=== PATIENT | male | born 1945 | race Two or more races ===

== ENCOUNTER 2024-08-26 00:01 | Emergency (ER) | payer MEDICARE, SELFPAY ==
[2024-08-26 00:01] VITALS: BMI 24.7
[2024-08-26 00:15] VITALS: BP 120/66; PULSE 91; RESP 19; TEMP 36.4; O2SAT 94
--- NOTE | 2024-08-26 00:33 | EDRME_ITS ---
Rapid Medical Screening Exam PENDING SALE TO [facility] Arrival date/time: 08/26/24 00:01 79M with history of HTN and DM Presents to ED with 1 day of RLQ pain and [id number] constipation. Chief Complaint: Abdominal Pain Vital signs: Vital Signs Temperature 97.6 F 08/26/24 00:15 Pulse Rate 91 08/26/24 00:15 Respiratory Rate 19 08/26/24 00:15 Blood Pressure 120/66 08/26/24 00:15 Pulse Oximetry (%) 94 L 08/26/24 00:15 Oxygen Delivery Method Room Air 08/26/24 00:15
--- NOTE | 2024-08-26 00:33 | XR_ITS ---
Examination: CT abdomen with intravenous contrast CT pelvis with intravenous contrast 2-D coronal reconstructions 2-D sagittal reconstructions Date and time of exam: August 26, 2024 0330 hrs. Comparison April 05, 2023 Indications: Painful right lower abdominal pain beginning 2 days ago, history kidney stones CTDI: vol (mGy) 8.11 DLP: (mGycm) 478 Technique: Multiple axial sections of the abdomen and pelvis have been obtained. 64 slice high-resolution scanner used. 3 mm axial sections have been obtained, post intravenous injection 60 cc Isovue-370 2-D sagittal, coronal reconstructions obtained. Low dose protocols were performed. One or more of the following dose reduction techniques were used; automated exposure control, adjustment of the mA and/or KV according to patient size, use of iterative reconstruction technique. Findings: No focal liver or splenic lesions No gallstones No pancreatic mass Minimal perinephric stranding No renal or ureteral calculi Heavy abdominal aortic and abdominal vascular calcification including renal arteries Air distended right colon Normal appendix No bowel obstruction No diverticulitis Mildly fluid distended small bowel loops in the pelvis No bladder mass Transverse prostate dimension 4.6 cm Impression: No renal or ureteral calculi, no hydronephrosis Heavy vascular calcification Normal appendix No bowel obstruction Mild small bowel ileus pattern Moderate prostatomegaly
[2024-08-26 01:25] LABS: Basophils % (Auto) 1 % (0-2.5); Eosinophils # (Auto) 0.1 Thou/mm3 (0.0-0.5); Eosinophils % (Auto) 2 % (0-10); Hematocrit 31.2 % (41.0-53.0); Hemoglobin 11.5 g/dL (13.5-16.0); Immature Granulocytes % (Auto) 0 % (0-0); Immature Granulocytes Auto 0.01 Thou/mm3 (0.00-0.00); Lymphocytes % (Auto) 26 % (10-50); Mean Corpuscular HGB Conc 36.9 g/dl (31.0-37.0); Mean Corpuscular Hemoglobin 33.9 pg (25.0-35.0); Mean Corpuscular Volume 92 fL (80-100); Monocytes # (Auto) 0.6 Thou/mm3 (0.0-0.8); Monocytes % (Auto) 15 % (0-12); Neutrophils # (Auto) 2.1 Thou/mm3 (1.8-7.7); Neutrophils % (Auto) 56 % (37-80); Nucleated Red Blood Cell % 0 /100 WBC (0); Platelet Count 269 Thou/mm3 (140-440); Red Blood Count 3.39 Miln/mm3 (4.50-5.90); White Blood Count 3.8 Thou/mm3 (3.8-10.6)
[2024-08-26 01:47] LABS: Alanine Aminotransferase 38 U/L (10-49); Albumin, Serum 4.2 gm/dL (3.4-4.8); Albumin/Globulin Ratio 1.9 (1.2-2.2); Alkaline Phosphatase 104 U/L (46-116); Anion Gap 8 (7-16); Aspartate Amino Transferase 32 U/L (0-34); BUN/Creatinine Ratio 7 Ratio (12-20); Bilirubin,Total 0.6 mg/dL (0.3-1.2); Blood Urea Nitrogen 5 mg/dL (9-23); Calcium 9.4 mg/dL (8.3-10.6); Calcium (Corrected) 9.4 mg/dL (8.5-10.1); Carbon Dioxide 27.5 mMol/L (20.0-31.0); Chloride 92 mMol/L (98-107); Creatinine (Component) 0.7 mg/dL (0.6-1.3); Estimated Creatinine Clearance 85.5 mL/min (>60); Globulin 2.2 gm/dL (2.3-3.5); Glucose 137 mg/dL (74-106); Lipase 57 U/L (12-53); Osmolality,Calculated 254 (275-295); Potassium 2.8 mMol/L (3.4-5.1); Sodium 127 mMol/L (136-145); Total Protein 6.4 gm/dL (5.7-8.2); eGFR > 60 See Note
--- NOTE | 2024-08-26 02:04 | EKG_ITS ---
[facility] Test Date: 2024-08-26 Pat Name: GUILLERMO DAVIS Department: Room: - Gender: Male Expander: : 1945 Requested By: Renzo Jacobs Order Number: [id number] Reading MD: Renzo Jacobs Measurements Intervals [place] Rate: 75 P: 4 ME: 170 QRS: -33 QRSD: 127 T: 2 QT: 444 QTc: 497 Interpretive Statements SINUS RHYTHM MARKED LEFT AXIS DEVIATION [QRS AXIS < -30] MODERATE INTRAVENTRICULAR CONDUCTION DELAY [110+ ms QRS DURATION] PROLONGED QT INTERVAL Compared to ECG 10/05/2023 09:14:20 Intraventricular conduction delay now present Prolonged QT interval now present Incomplete right bundle-branch block no longer present /store/S0/[id number]/ecg/[id number].pdf
--- NOTE | 2024-08-26 02:15 | EDNOTE_ITS ---
ED Abdominal Pain RME/HPI General Chief Complaint: Abdominal Pain Stated complaint: lower abd pain Arrival date/time: 08/26/24 00:01 RME / HPI RME / HPI narrative: 08/26/24 00:01 A 79-year-old male patient with past medical history of diverticulosis, hypertension, newly diagnosed diabetes mellitus, presented to the ED due to acute abdominal pain that started today at 8 PM. Patient reported that the pain is generalized was preceded with diarrhea for the last 3 days. Patient reported that he has also been experiencing excessive bloating for the past few months he is following up with Dr. Moreno the artificial candy maker and he did a colonoscopy last year in which he concluded the patient has diverticulosis and hemorrhoids. On further questioning patient reported that he has lower GI bleed also. Last bowel movement was today and followed with fresh blood per rectum, the bleeding was minimal and intermittent.. Patient denied any fever, discharge, chills, cough or shortness of breath. However he reported some shortness of breath when he lay flat and also generalized weakness. His at bedside mentions that he noticed that his feet are swollen. Patient denied any chest pain, palpitation, or syncopal episodes. Related Data Home Medications ?Medication ?Instructions ?Recorded ?Confirmed amlodipine 5 mg tablet (Norvasc) 15 mg PO QDAY #0 tabs 08/04/16 04/08/23 citalopram 10 mg tablet (Celexa) 30 mg PO QDAY #0 tabs 08/04/16 04/08/23 nitroglycerin 0.3 mg sublingual 0.3 mg SL UD #0 tabs 08/04/16 04/08/23 tablet (Nitrostat) simvastatin 40 mg tablet (Zocor) 40 mg PO HS #0 tabs 08/04/16 04/08/23 insulin aspart U-100 100 unit/mL 15 unit subcut TID 03/30/22 04/08/23 subcutaneous solution (Novolog U-100 Insulin aspart) metformin 1,000 mg tablet 1,000 mg PO BID 03/30/22 04/08/23 zaleplon 5 mg capsule 5 mg PO QDAY 03/30/22 04/08/23 docusate sodium 100 mg capsule 100 mg PO BID 04/08/23 04/08/23 (Colace) gabapentin 100 mg capsule 100 mg PO TID 04/08/23 04/08/23 meclizine 50 mg tablet (Antivert) 25 mg PO TID 04/08/23 04/08/23 Allergies Allergy/AdvReac Type Severity Reaction Status Date / Time No Known Allergies Allergy Verified 08/26/24 00:04 ED Exam Narrative Physical exam: GEN: AOx3, able to speak full sentences HEENT: NC/AC, PERRLA, oral mucosa moist, neck supple CVS: RRR, S1-S2 present, no murmurs appreciated RESP: CTAB GI: soft, distended, non tender, NBS MSK: able to move all 4 limbs, +3 lower extremity edema SKIN: warm and dry MACHINE ICER: CN II-XII and Sensation grossly intact. Course Quality Measures none Orders Category Date Time Status CT Screening NOW Care 08/26/24 00:33 Active EKG (ED ONLY) *Do not use* NOW Care 08/26/24 02:04 Completed Insert IV NOW Care 08/26/24 00:[address] abdomen pelvis w con Stat Exams 08/26/24 00:33 Taken EKG (ED Only) Stat Exams 08/26/24 02:04 Draft BNP [B-Type Natriuretic Peptide] Stat Lab 08/26/24 04:29 Ordered CBC Stat Lab 08/26/24 01:13 Completed CMP [Comprehensive Metabolic Panel] Stat Lab 08/26/24 01:13 Completed Lipase Stat Lab 08/26/24 01:13 Completed Troponin I Stat Lab 08/26/24 04:29 Ordered UA [Urinalysis] Stat Lab 08/26/24 01:55 Completed Urine Culture Stat Lab 08/26/24 01:55 Received Morphine Inj Med 08/26/24 02:14 Discontinued 1 mg IVP X1 ONE POTASSIUM CHL 10 mEq IVPB [Kcl Ivpb] Med 08/26/24 02:15 Active 10 meq in 100 ml IV Q1H Potassium Chloride [K-Dur] Med 08/26/24 04:29 Discontinued 40 meq PO X1 ONE Vital Signs Vital signs: Vital Signs Temperature 97.6 F 08/26/24 00:15 Pulse Rate 91 08/26/24 00:15 Respiratory Rate 19 08/26/24 00:15 Blood Pressure 120/66 08/26/24 00:15 Pulse Oximetry (%) 94 L 08/26/24 00:15 Oxygen Delivery Method Room Air 08/26/24 00:15 Abdominal Pain MDM Patient data External records reviewed:: [facility] previous records Clinical information provided by:: patient and spouse Social determinants that could affect healthcare access:: none Patient has the following chronic illnesses:: IBS How is presenting disease/condition affected by chronic disease/condition?: exacerbated by Evaluation data The following diagnostics were reviewed and interpreted by me:: lab results, radiology exam(s) and EKG tracing(s) Lab and/or radiology exams considered but not ordered:: None Interpretation Summary: None Medications / Prescriptions Medications or Prescriptions considered but not ordered:: None Medication administrations:: Medication Administration History Potassium Chloride (Kcl Ivpb) 10 meq in 100 mls @ 100 mls/hr IV Q1H FRANK Stop: 08/26/24 06:14 Last Admin: 08/26/24 04:32 Dose: 100 mls/hr Documented By: Infusion: 08/26/24 04:31 Dose: Infused Documented By: Admin: 08/26/24 03:18 Dose: 100 mls/hr Documented By: SALOMÓN Discontinued Medications Morphine Sulfate (Morphine Sulf Inj 10 Mg/Ml Vial) 1 mg IVP X1 ONE Stop: 08/26/24 02:15 Last Admin: 08/26/24 02:30 Dose: 1 mg Documented By: SALOMÓN Potassium Chloride (Potassium Chloride 20 Meq Tabcr) 40 meq PO X1 ONE Stop: 08/26/24 04:30 Last Admin: 08/26/24 05:02 Dose: 40 meq Documented By: SALOMÓN As above-given Consultations Consultation(s) initiated? (list below): No Diagnosis Differential diagnosis abdominal pain: abdominal pain and other (IBS) Most likely diagnosis given after review of the tests above:: IBS pain Possible bleeding hemorrhoids Admission Indicated Admission indicated?: not indicated Admission Request Was there a request for admission?: No Disposition Plan Disposition Plan: Discharge Discharge Attestation Discharge Attestation: The patient and all family members were given an opportunity to ask questions and understood the discharge instructions. Discharge instructions specifically effects, indications for sooner follow up or return to the emergency department, and the expected course of current diagnosis. Patient condition: Stable Discharge Plan Plan Patient Disposition: HOME (Self Care) Health Concerns: Follow-up with your primary care physician within 3 days from discharge Follow-up with your artificial candy maker Dr. Moreno as your pain most likely secondary to IBS Your blood levels stable at this time, follow-up with the artificial candy maker regarding your hemorrhoids. No need for immediate intervention at this time from our standpoint and you can return home with your IBS medications Avoid dairy products as it may increase your bloating. We noticed that your prostate is enlarged, follow-up with your primary care physician regarding your prostate enlargement to rule out any malignancy CT scan also showed possible cirrhosis, discussed this condition with your primary care physician. Prescriptions/Referrals Prescriptions/Med Rec: No Action nitroglycerin [Nitrostat] 0.3 MG tablet, sublingual 0.3 mg SL UD Qty: 0 citalopram [Celexa] 10 MG tablet 30 mg PO QDAY Qty: 0 amlodipine [Norvasc] 5 MG tablet 15 mg PO QDAY Qty: 0 simvastatin [Zocor] 40 MG tablet 40 mg PO HS Qty: 0 metformin 1,000 mg tablet 1,000 mg PO BID Patient Comments: take 1 tablet by mouth once a day zaleplon 5 mg capsule 5 mg PO QDAY Patient Comments: take 1 tab by mouth as directed as needed insulin aspart U-100 [Novolog U-100 Insulin aspart] 100 unit/mL Solution 15 unit SUBCUT TID Antivert 50 mg tablet 25 mg PO TID docusate sodium [Colace] 100 mg Capsule 100 mg PO BID gabapentin 100 mg capsule 100 mg PO TID Patient Comments: TAKE 1 CAPSULE BY MOUTH THREE TIMES A DAY Referrals: Jose Whittington MD [Primary Care Provider] - In 1 week Problem List Clinical Impression: Abdominal pain Patient/Caregiver Discharge Instructions Print Language: Yoruba Stand Alone Forms: Claudia Award Info., Patient Portal Info Letter
[2024-08-26 02:27] LABS: Collection Type, Urine Clean Catch; Squamous Epithelial Cell,Urine 0 /hpf (0-5)
[2024-08-26] MEDS: MORPHINE SULF INJ 10 MG/ML VIAL IVP (02:30)
[2024-08-26 02:32] VITALS: BP 160/64; PULSE 81; RESP 16; TEMP 36.6; O2SAT 95
[2024-08-26 02:41] LABS: Bilirubin,Urine Negative (Negative); Blood,Urine Negative (Negative); Clarity,Urine Clear (Clear/Hazy); Color,Urine Yellow (Lt Yel-Yel); Glucose, Urine Negative (Negative); Hyaline Casts,Urine 1 /hpf (0-1); Ketones,Urine Trace (Negative); Leukocyte Esterase,Urine Negative (Negative); Nitrite,Urine Negative (Negative); Protein,Urine Negative (Neg - Trace); RBC,Urine 1 /hpf (0-3); Specific Gravity,Urine 1.012 (1.001-1.035); Urobilinogen,Urine Negative mg/dL (0.0-1.0); WBC,Urine < 1 /hpf (0-5)
[2024-08-26] MEDS: POTASSIUM CHL 10 mEq IVPB 10 MEQ/100 ML BAG 100 MEQ IV ×4 (03:18→06:53)
[2024-08-26] MEDS: POTASSIUM CHLORIDE 20 mEq TABCR 40 MEQ PO (05:02)
--- NOTE | 2024-08-26 05:02 | PRELIM_ITS ---
CT scan of the abdomen and pelvis with intravenous contrast (axial sections with sagittal and coronal reformats) August 26, 2024 at 0329 hoursClinical History: Right lower quadrant pain.Comparison: No prior study is available for comparison.Findings:The lung bases are clear.The gallbladder, pancreas, spleen, kidneys and adrenals are unremarkable.Mild irregular liver margins.No evidence of bowel obst ruction. The appendix is within normal limits.There is no mesenteric or retroperitoneal adenopathy.Th e urinary bladder is unremarkable. There is no free fluid or free air.Degenerative changes of the sina ged portions of the spine. No acute fractures. Chronic multilevel disc disease. Posterior fusion yessy dware between L5 and S1.Vascular calcifications.Enlarged prostate.Impression:Possible cirrhosis.Enlar ged prostate. Consider correlation with PSA. Report Electronically Signed By: Real White 2023 5:01:32 AM [EST]
[2024-08-26 06:37] VITALS: BP 145/69; PULSE 88; RESP 17; TEMP 36.5; O2SAT 96
[2024-08-26 08:13] VITALS: BP 143/74; PULSE 91; RESP 18; TEMP 37.1; O2SAT 95
[2024-08-26 08:30] VITALS: BP 144/74; PULSE 89; RESP 20; O2SAT 98
== END 2024-08-26 08:30 | disposition home or self-care (01) ==
PROVIDERS: Physician Assistant; Emergency Provider Emergency Medicine; PCP Family Medicine
DX: R10.30 Lower abdominal pain, unspecified (principal); N40.0 Benign prostatic hyperplasia without lower urinary tract symptoms; I10 Essential (primary) hypertension; I45.89 Other specified conduction disorders
CPT/HCPCS: 36415; 74177; 80053; 81001; 83690; 83880; 84484; 85025; 87086; 93005; 96365; 96375; 99285; A4649; J2270; J3480; Q9967; A9270

== ENCOUNTER 2024-09-07 07:40 | Day surgery (SDC) | payer MEDICARE, SELFPAY ==
[2024-09-07] VITALS (10 sets, daily range): BP systolic 122–164; BP diastolic 69–88; PULSE 82–92; RESP 15–25; TEMP 36.3–37; O2SAT 93–100; BMI 24.5
[2024-09-07] MEDS: DiphenhydrAMINE INJ 50 MG/ML VIAL 25 MG IV (10:03)
[2024-09-07] MEDS: fentaNYL CIT INJ 50 mCg/ML AMP 2ML (ASD USE ONLY) IV (10:08)
[2024-09-07] MEDS: MIDAZOLAM INJ 1 MG/ML VIAL 2 ML (ASD USE ONLY) 2 MG IV (10:11)
--- NOTE | 2024-09-07 10:51 | SUR.PHASEII ---
1030: Pt received for recovery. Report from Nico FARR. Pt awake with coherent responses. Resp even, unlabored. VS stable. Denies pain. 1050: Pt more alert. VS stable. Denies pain. Pt sitting up tolerating po fluids with no difficulty swallowing and no n/v.
--- NOTE | 2024-09-07 11:27 | SUR.PHASEII ---
1115: Pt fully awake, oriented x3. VS stable. Denies pain. Pt assisted to restroom to void and dress. Ambulation steady. Pt assisted to transport chair. Pt began c/o pressure lower abdomen. Pt passing flatus. Stated some relief. Pt and stated understanding of discharge instructions. While taking pt to his car he began c/o still feeling mildly sedated. insisted pt be brought back in to lay down. Pt brought back in and placed on gurney. Continues to pass flatus. Denies pain.
--- NOTE | 2024-09-07 12:43 | SUR.PHASEII ---
1145: Pt stated he felt better, but still mildly sedated. Was explained that sedation would fade. Recommended he ambulate with caution after going home. Pt assisted to transport chair. Ambulation steady. Pt discharged from [facility] in stable condition.
== END 2024-09-07 11:45 | disposition home or self-care (01) ==
PROVIDERS: PCP Family Medicine; Referring Provider Specialist; Visit Provider Specialist
PROC: 0DBE8ZX Excision of Large Intestine, Via Natural or Artificial Opening Endoscopic, Diagnostic (ICD-10-PCS; CPT 45380; principal; 2024-09-07 08:30)
DX: K64.8 Other hemorrhoids (principal); K57.31 Diverticulosis of large intestine without perforation or abscess with bleeding; K55.20 Angiodysplasia of colon without hemorrhage
CPT/HCPCS: 45378; A4649; J1200; J2250; J3010

== ENCOUNTER → 2024-09-20 | Outpatient (CLI) | payer MEDICARE, SELFPAY ==
[2024-09-20 12:14] LABS: Alanine Aminotransferase 31 U/L (10-49); Albumin, Serum 4.3 gm/dL (3.4-4.8); Albumin/Globulin Ratio 2.3 (1.2-2.2); Alkaline Phosphatase 101 U/L (46-116); Anion Gap 6 (7-16); Aspartate Amino Transferase 23 U/L (0-34); BUN/Creatinine Ratio 9 Ratio (12-20); Bilirubin,Total 0.5 mg/dL (0.3-1.2); Blood Urea Nitrogen 6 mg/dL (9-23); Calcium 9.6 mg/dL (8.3-10.6); Calcium (Corrected) 9.6 mg/dL (8.5-10.1); Carbon Dioxide 27.3 mMol/L (20.0-31.0); Chloride 96 mMol/L (98-107); Creatinine (Component) 0.7 mg/dL (0.6-1.3); Globulin 1.9 gm/dL (2.3-3.5); Glucose 143 mg/dL (74-106); Osmolality,Calculated 258 (275-295); Potassium 4.4 mMol/L (3.4-5.1); Sodium 129 mMol/L (136-145); Total Protein 6.2 gm/dL (5.7-8.2); eGFR > 60 See Note
== END | disposition home or self-care (01) ==
LOC: COPL 10:28
PROVIDERS: PCP Specialist; Referring Provider Specialist; Visit Provider Specialist
DX: K92.1 Melena (principal)
CPT/HCPCS: 36415; 80053

== ENCOUNTER → 2024-10-23 | Outpatient (CLI) | payer MEDICARE, SELFPAY ==
[2024-10-23 15:49] LABS: Alanine Aminotransferase 31 U/L (10-49); Albumin/Globulin Ratio 1.7 (1.2-2.2); Alkaline Phosphatase 110 U/L (46-116); Anion Gap 6 (7-16); Aspartate Amino Transferase 27 U/L (0-34); BUN/Creatinine Ratio 11 Ratio (12-20); Bilirubin,Total 0.4 mg/dL (0.3-1.2); Blood Urea Nitrogen 8 mg/dL (9-23); Calcium 9.7 mg/dL (8.3-10.6); Calcium (Corrected) 9.7 mg/dL (8.5-10.1); Carbon Dioxide 29.6 mMol/L (20.0-31.0); Chloride 102 mMol/L (98-107); Creatinine (Component) 0.7 mg/dL (0.6-1.3); Globulin 2.3 gm/dL (2.3-3.5); Glucose 114 mg/dL (74-106); Osmolality,Calculated 274 (275-295); Potassium 3.9 mMol/L (3.4-5.1); Sodium 138 mMol/L (136-145); Total Protein 6.3 gm/dL (5.7-8.2); eGFR > 60 See Note
== END | disposition home or self-care (01) ==
LOC: COPL 14:12
PROVIDERS: PCP Family Medicine; Referring Provider Specialist; Visit Provider Specialist
DX: K92.1 Melena (principal)
CPT/HCPCS: 36415; 80053

== ENCOUNTER → 2024-10-24 | Outpatient (CLI) | payer MEDICARE, SELFPAY ==
--- NOTE | 2024-10-24 10:30 | XR_ITS ---
Examination: CTA abdomen, with intravenous contrast. CTA pelvis, with intravenous contrast. 2-D sagittal and coronal reconstructions. 3-D reconstructions. Date and time of exam: October 24, 2024 0957 hours INDICATIONS: Diagnosis diverticulosis of large intestine without perforation, patient has bloating generalized abdominal pain 2 months history colonoscopy CTDI vol (mgy) 15 DLP (MGycm) 468 Technique: Multiple CTA images, 2.0 mm slice thickness, obtained abdomen, pelvis, with the high-resolution 64 slice scanner. 100 cc Isovue-370 is administered intravenously. Sagittal and coronal 2-D reconstructions are obtained. 3-D reconstructions, angiographic images are obtained. 3-D postprocessing, including vascular maximum intensity projections. Low dose protocols were performed. One or more of the following dose reduction techniques were used; automated exposure control, adjustment of the mA and/or KV according to patient size, use of iterative reconstruction technique. Findings: AP dimension ascending thoracic aorta 3.3 cm No visualized pulmonary artery emboli No liver or splenic lesion No gallstones Normal pancreas normal adrenal glands Mild bilateral renal parenchymal scar formation No renal or ureteral calculi, no hydronephrosis Heavy abdominal aortic calcification Normal appendix Air and stool distended right colon No bowel obstruction Sigmoid colonic diverticulosis, no diverticulitis Urinary bladder intact Transverse prostate dimension 3.9 cm Diffuse advanced lumbar degenerative disc disease IMPRESSION: Mild bilateral renal parenchymal scar formation Normal appendix Colonic diverticulosis, no diverticulitis
== END | disposition home or self-care (01) ==
LOC: CCTX 09:32
PROVIDERS: PCP Family Medicine; Referring Provider Specialist; Visit Provider Specialist
DX: N28.89 Other specified disorders of kidney and ureter (principal); K57.30 Diverticulosis of large intestine without perforation or abscess without bleeding
CPT/HCPCS: 74174; A4649; Q9967

== ENCOUNTER → 2024-11-26 | Outpatient (BNVA) | payer OTHER, SELFPAY | END | disposition home or self-care (01) | PROVIDERS: PCP Family Medicine; Referring Provider Family Medicine; Visit Provider Urology | DX: N40.1 Benign prostatic hyperplasia with lower urinary tract symptoms (principal); N13.8 Other obstructive and reflux uropathy; R97.20 Elevated prostate specific antigen [PSA]; E11.42 Type 2 diabetes mellitus with diabetic polyneuropathy; I10 Essential (primary) hypertension; N40.2 Nodular prostate without lower urinary tract symptoms; E78.00 Pure hypercholesterolemia, unspecified; K21.9 Gastro-esophageal reflux disease without esophagitis | CPT/HCPCS: 81003; 99212; G0463 ==

== ENCOUNTER → 2025-01-18 | Outpatient (CLI) | payer OTHER, SELFPAY ==
[2025-01-18 13:27] LABS: Prostate Specific Antigen 7.71 ng/mL (0-4.00)
== END | disposition home or self-care (01) ==
PROVIDERS: PCP Family Medicine; Referring Provider Surgery; Visit Provider Surgery
DX: N40.1 Benign prostatic hyperplasia with lower urinary tract symptoms (principal)
CPT/HCPCS: 36415; 84153

== ENCOUNTER → 2025-07-12 | Outpatient (CLI) | payer MEDICARE, OTHER, SELFPAY ==
[2025-07-12 15:38] LABS: Prostate Specific Antigen 4.58 ng/mL (0-4.00)
== END | disposition home or self-care (01) ==
PROVIDERS: PCP Family Medicine
DX: N40.0 Benign prostatic hyperplasia without lower urinary tract symptoms (principal); R97.20 Elevated prostate specific antigen [PSA]; Z12.5 Encounter for screening for malignant neoplasm of prostate
CPT/HCPCS: 36415; 84153

== ENCOUNTER → 2025-09-25 | Outpatient (CLI) | payer MEDICARE, OTHER, SELFPAY ==
[2025-09-25 12:39] LABS: Prostate Specific Antigen 5.23 ng/mL (0-4.00)
== END | disposition home or self-care (01) ==
LOC: COPL 11:27
PROVIDERS: PCP Family Medicine; Referring Provider Urology; Visit Provider Urology
DX: N40.0 Benign prostatic hyperplasia without lower urinary tract symptoms (principal); R97.20 Elevated prostate specific antigen [PSA]; Z12.5 Encounter for screening for malignant neoplasm of prostate
CPT/HCPCS: 36415; 84153